=== PATIENT | female | born 1980 | race Two or more races ===

== ENCOUNTER 2024-01-10 00:20 | Inpatient (IN) | payer OTHER ==
[2024-01-10] VITALS (39 sets, daily range): BP systolic 74–151; BP diastolic 22–139; TEMP 97–99.1; O2SAT 100
[~2024-01-10] VITALS: Ht 154.9 cm; Wt 71.7 kg
[2024-01-10] MEDS ORDERED: Z GUARD REMEDY 4 OZ OINT TP PRN (01:00)
[2024-01-10] MEDS ORDERED: ZOLPIDEM TARTRATE 5 MG TABLET PO PRN (01:00)
[2024-01-10] MEDS ORDERED: ACETAMINOPHEN 325 MG TABLET PO PRN (01:00)
[2024-01-10] MEDS ORDERED: MAGNESIUM HYDROXIDE 30 ML UDC PO PRN (01:00)
[2024-01-10] MEDS ORDERED: MAG HYDROX/AL HYDROX/SIMETH 30 ML UDC PO PRN (01:00)
[2024-01-10] MEDS ORDERED: PANTOPRAZOLE 40 MG VIAL ONE ×2 (01:03→02:59)
[2024-01-10] MEDS ORDERED: OCTREOTIDE 100 MCG/ML VIAL ONE ×2 (01:03→02:00)
[2024-01-10] MEDS: PANTOPRAZOLE 80 MG in IV NS 0.9% 100 ML IV ONE (01:13)
[2024-01-10] MEDS: OCTREOTIDE 50 MCG/ML AMPUL IV ONE (01:13)
[2024-01-10 01:18] LABS: ALBUMIN 2.2 g/dL (3.4-5.0); BILIRUBIN,DIRECT 1.9 mg/dL (0.0-0.2); BILIRUBIN,TOTAL 3.1 mg/dL (0.2-1.0); CALCIUM, SERUM 8.1 mg/dL (8.5-10.1); CREATININE 1.1 mg/dL (0.6-1.3); POTASSIUM 3.6 mmol/L (3.5-5.1)
[2024-01-10 02:01] LABS: BASOPHILS # (AUTO) 0.1 K/uL (0.0-0.2); BASOPHILS % (AUTO) 0.8 % (0.0-2.0); EOSINOPHILS % (AUTO) 0.1 % (0.0-6.0); MEAN CORPUSCULAR HEMOGLOBIN 25 PG (26.0-33.0); MEAN CORPUSCULAR HGB CONC 25 g/dl (31.0-36.0); MEAN CORPUSCULAR VOLUME 100 fL (82-100); MONOCYTES # (AUTO) 0.7 K/uL (0.1-1.30); MONOCYTES % (AUTO) 6.5 % (2.0-12.0); NEUTROPHILS # (AUTO) 7.3 K/uL (1.8-8.9); NEUTROPHILS % (AUTO) 65.6 % (43.0-81.0); PLATELET COUNT (AUTO) 106 K/uL (150-450); WHITE BLOOD COUNT (AUTO) 11.1 K/uL (4.3-11.0)
[2024-01-10] MEDS ORDERED: OCTREOTIDE 500 MCG/ML VIAL ONE (02:01)
[2024-01-10 02:03] LABS: HEMATOCRIT 10 % (33-45); HEMOGLOBIN 2.5 g/dL (11.5-14.8); RED BLOOD CELL COUNT(AUTO) 0.98 MIL/uL (4.0-5.2)
[2024-01-10 02:10] LABS: INR 1.85 (0.91-1.10); PARTIAL THROMBOPLASTIN TIME 34.2 SEC (24.3-34.3)
[2024-01-10 02:11] LABS: PROTHROMBIN TIME 18.8 SECS (9.2-11.1)
[2024-01-10 02:26] LABS: ANISOCYTOSIS 1+; BASOPHILS % (MANUAL) 0 % (0.0-2.0); EOSINOPHILS % (MANUAL) 3 % (0-4); HYPOCHROMASIA 1+; LYMPHOCYTES % (MANUAL) 21 % (16-48); MONOCYTES % (MANUAL) 8 % (0-11.0); NEUTROPHILS % (MANUAL) 68 (42-76); OVALOCYTES 1+; PLATELET ESTIMATE DECREASED
[2024-01-10] MEDS: OCTREOTIDE 1,250 MCG in IV NS 0.9% 250 ML IV ONE (03:00)
[2024-01-10] MEDS: LORAZEPAM INJ 2 MG/ML VIAL IV ONE (03:00)
[2024-01-10] MEDS: IV NS 0.9% 1,000 ML IV PRN (03:00)
[2024-01-10] MEDS: PANTOPRAZOLE 80 MG in IV NS 0.9% 500 ML IV ONE (03:00)
[2024-01-10] MEDS ORDERED: ONDA4TAB5 PO (04:05)
[2024-01-10] MEDS ORDERED: METH5TAB2 PO (04:05)
[2024-01-10] MEDS ORDERED: AMPH30TA3 PO (04:05)
[2024-01-10] MEDS ORDERED: CEPH500C2 PO (04:05)
[2024-01-10] MEDS ORDERED: ZOLP10TA2 PO (04:05)
[2024-01-10] MEDS: ONDANSETRON HCL/PF 4 MG/2 ML VIAL IVP PRN (04:30)
[2024-01-10] MEDS: PANTOPRAZOLE 80 MG in IV NS 0.9% 500 ML IV PRN (04:31)
[2024-01-10] MEDS: OCTREOTIDE 1,250 MCG in IV NS 0.9% 247.5 ML IV PRN (04:33)
[2024-01-10] MEDS: LORAZEPAM INJ 2 MG/ML VIAL IV PRN (07:47)
[2024-01-10] MEDS ORDERED: HYDR-3976 PO (08:03)
[2024-01-10] MEDS: IV D5/0.45 NACL 1,000 ML IV PRN (11:11)
[2024-01-10 18:52] LABS: BASOPHILS % (AUTO) 0.3 % (0.0-2.0); EOSINOPHILS % (AUTO) 0.1 % (0.0-6.0); LYMPHOCYTES # (AUTO) 0.5 K/uL (0.8-4.8); LYMPHOCYTES % (AUTO) 6.3 % (20.0-44.0); MEAN CORPUSCULAR HEMOGLOBIN 29 PG (26.0-33.0); MEAN CORPUSCULAR HGB CONC 34 g/dl (31.0-36.0); MEAN CORPUSCULAR VOLUME 86 fL (82-100); MONOCYTES # (AUTO) 0.7 K/uL (0.1-1.30); MONOCYTES % (AUTO) 8.4 % (2.0-12.0); NEUTROPHILS # (AUTO) 6.8 K/uL (1.8-8.9); NEUTROPHILS % (AUTO) 84.9 % (43.0-81.0); RED CELL DISTRIBUTION WIDTH 15.5 % (11.5-15.0)
[2024-01-10 18:53] LABS: CALCIUM, SERUM 6.8 mg/dL (8.5-10.1); CARBON DIOXIDE 22 mmol/L (21-32); CHLORIDE 112 mmol/L (98-107); CREATININE 0.6 mg/dL (0.6-1.3); GLUCOSE 142 mg/dL (74-106); POTASSIUM 3.7 mmol/L (3.5-5.1); SODIUM SERUM 144 mmol/L (136-145); UREA NITROGEN, BLOOD 34 mg/dL (7-18)
[2024-01-10 18:56] LABS: HEMATOCRIT 18 % (33-45); HEMOGLOBIN 6.1 g/dL (11.5-14.8); PLATELET COUNT (AUTO) 34 K/uL (150-450)
[2024-01-10 19:02] LABS: PREGNANCY TEST URINE QUAL NEGATIVE (NEGATIVE)
[2024-01-10 19:03] LABS: INR 2.42 (0.91-1.10); PROTHROMBIN TIME 24.2 SECS (9.2-11.1)
[2024-01-10 19:04] LABS: AMPHETAMINE, URINE NEGATIVE (NEGATIVE); BARBITURATE, URINE NEGATIVE (NEGATIVE); BENZODIAZEPINE, URINE NEGATIVE (NEGATIVE); CANNABINOID, URINE NEGATIVE (NEGATIVE); COCCAINE, URINE NEGATIVE (NEGATIVE); OPIATE, URINE NEGATIVE (NEGATIVE); PHENCYCLIDINE SCREEN,URINE NEGATIVE (NEGATIVE)
[2024-01-10 19:05] LABS: ALANINE AMINOTRANSFERASE 326 U/L (12-78); ALBUMIN 1.5 g/dL (3.4-5.0); ALKALINE PHOSPHATASE 42 U/L (46-116); ASPARTATE AMINOTRANSFERASE > 1000 U/L (15-37); BILIRUBIN,TOTAL 4.2 mg/dL (0.2-1.0); MAGNESIUM 1.5 mg/dL (1.8-2.4); PHOSPHORUS 2.9 mg/dL (2.5-4.9)
[2024-01-10] MEDS: IV NS 0.9% 250 ML IV PRN (19:20)
[2024-01-10 19:21] LABS: LACTIC ACID 3.3 mmol/L (0.4-2.0)
[2024-01-10 19:22] LABS: ACETONE, SERUM NEGATIVE (NEGATIVE)
[2024-01-10] MEDS: SODIUM BICARBONATE SYR 50 MEQ/50 ML DISP.SYRIN IV ONE (19:30)
[2024-01-10 19:54] LABS: LYMPHOCYTES % (MANUAL) 6 % (16-48); MONOCYTES % (MANUAL) 6 % (0-11.0); NEUTROPHILS % (MANUAL) 88 (42-76)
[2024-01-10 19:55] LABS: ANISOCYTOSIS 1+; OVALOCYTES 1+; PLATELET ESTIMATE DECREASED; TEAR DROP CELLS 1+
[2024-01-10 20:36] LABS: ABG BASE EXCESS 0.9 mmol/L; ABG OXYGEN SATURATION 98.1 % (92.0-98.5); ABG PCO2 32.5 mmHg (35.0-45.0); ABG PO2 153.8 mmHg (75.0-100.0); ABG TOTAL HEMOGLOBIN 6.7 G/dL (12.0-16.0); AaDO2 65.2 mmHg; COHb 0.3 % (0.5-1.5); MetHb 0.5 % (0.0-1.5); O2Hb 97.3 % (94.0-97.0); SITE, ABG Right Radial
[2024-01-11] VITALS (83 sets, daily range): BP systolic 94–160; BP diastolic 51–93; TEMP 98.6–100.9; O2SAT 10–100
[2024-01-11 04:48] LABS: ALANINE AMINOTRANSFERASE 251 U/L (12-78); ALBUMIN 1.5 g/dL (3.4-5.0); ALKALINE PHOSPHATASE 46 U/L (46-116); ASPARTATE AMINOTRANSFERASE > 1000 U/L (15-37); BILIRUBIN,DIRECT 2.8 mg/dL (0.0-0.2); BILIRUBIN,TOTAL 4.7 mg/dL (0.2-1.0); CALCIUM, SERUM 6.7 mg/dL (8.5-10.1); CARBON DIOXIDE 25 mmol/L (21-32); CHLORIDE 113 mmol/L (98-107); CREATININE 0.6 mg/dL (0.6-1.3); GLUCOSE 140 mg/dL (74-106); MAGNESIUM 1.5 mg/dL (1.8-2.4); PHOSPHORUS 2.1 mg/dL (2.5-4.9); POTASSIUM 3.5 mmol/L (3.5-5.1); SODIUM SERUM 144 mmol/L (136-145); UREA NITROGEN, BLOOD 27 mg/dL (7-18)
[2024-01-11 05:17] LABS: BASOPHILS % (AUTO) 0.1 % (0.0-2.0); EOSINOPHILS % (AUTO) 0.3 % (0.0-6.0); LYMPHOCYTES # (AUTO) 0.6 K/uL (0.8-4.8); LYMPHOCYTES % (AUTO) 8.1 % (20.0-44.0); MEAN CORPUSCULAR HEMOGLOBIN 30 PG (26.0-33.0); MEAN CORPUSCULAR HGB CONC 35 g/dl (31.0-36.0); MEAN CORPUSCULAR VOLUME 86 fL (82-100); MONOCYTES # (AUTO) 0.6 K/uL (0.1-1.30); MONOCYTES % (AUTO) 9.5 % (2.0-12.0); NEUTROPHILS # (AUTO) 5.6 K/uL (1.8-8.9); RED BLOOD CELL COUNT(AUTO) 2.31 MIL/uL (4.0-5.2); RED CELL DISTRIBUTION WIDTH 15.4 % (11.5-15.0); WHITE BLOOD COUNT (AUTO) 6.8 K/uL (4.3-11.0)
[2024-01-11 05:28] LABS: HEMATOCRIT 20 % (33-45); HEMOGLOBIN 6.8 g/dL (11.5-14.8); PLATELET COUNT (AUTO) 29 K/uL (150-450)
[2024-01-11 06:11] LABS: ABG BASE EXCESS 0.5 mmol/L; ABG OXYGEN SATURATION 98.4 % (92.0-98.5); ABG PCO2 30.2 mmHg (35.0-45.0); ABG PH 7.509 (7.350-7.450); ABG PO2 144.6 mmHg (75.0-100.0); ABG TOTAL HEMOGLOBIN 6.7 G/dL (12.0-16.0); AaDO2 77.1 mmHg; COHb 0.8 % (0.5-1.5); MetHb 0.4 % (0.0-1.5); O2Hb 97.2 % (94.0-97.0); SITE, ABG Right Brachial; VENT MODE, BG 4L N/C
[2024-01-11 06:37] LABS: BAND % (MANUAL) 4 % (0.0-5.0); LYMPHOCYTES % (MANUAL) 7 % (16-48); MONOCYTES % (MANUAL) 9 % (0-11.0); NEUTROPHILS % (MANUAL) 80 (42-76); PLATELET ESTIMATE DECREASED
[2024-01-11 06:38] LABS: ANISOCYTOSIS 1+; HYPOCHROMASIA 1+; OVALOCYTES 1+; TEAR DROP CELLS 1+
[2024-01-11] MEDS: PROPOFOL 100 ML IV PRN (09:07)
[2024-01-11] MEDS ORDERED: LACTULOSE 10 G/15 ML UDC (PYXIS) PO PRN (09:30)
[2024-01-11] MEDS: Magnesium 1GM/D5W 100ML PREMIX 100 ML IV SCH (09:51)
[2024-01-11] MEDS: PHYTONADIONE INJ 10 MG/1 ML AMPUL SQ SCH (09:51)
[2024-01-11 10:17] LABS: ABG BASE EXCESS 0.2 mmol/L; ABG OXYGEN SATURATION 98.8 % (92.0-98.5); ABG PCO2 28.9 mmHg (35.0-45.0); ABG PH 7.518 (7.350-7.450); ABG PO2 268.6 mmHg (75.0-100.0); ABG TOTAL HEMOGLOBIN 7.1 G/dL (12.0-16.0); AaDO2 127.4 mmHg; COHb 0.5 % (0.5-1.5); MetHb 0.4 % (0.0-1.5); O2Hb 97.9 % (94.0-97.0); PEEP,BG 5 cm H2O; SITE, ABG Left Radial; VT, ABG 500 mL
[2024-01-11] MEDS ORDERED: ETOMIDATE 2 MG/ML VIAL IV ONE (11:00)
[2024-01-11] MEDS ORDERED: SUCCINYLCHOLINE CHLORIDE 20 MG/ML VIAL IV ONE (11:00)
[2024-01-11] MEDS ORDERED: ACETAMINOPHEN 325 MG TABLET PO ONE (13:30)
[2024-01-11] MEDS: diphenhydrAMINE HCL 50 MG/ML VIAL IV ONE ×2 (14:00→20:59)
[2024-01-11 14:09] LABS: D-DIMER 2.2 mg/L(FEU (0.17-0.50); INR 1.65 (0.91-1.10); PARTIAL THROMBOPLASTIN TIME 33.3 SEC (24.3-34.3); PROTHROMBIN TIME 16.9 SECS (9.2-11.1)
[2024-01-11 14:15] LABS: THYROID STIMULATING HORMONE 0.168 uIU/mL (0.358-3.74)
[2024-01-11] MEDS: Sodium Phosphate 15 MMOL in IV NS 0.9% 245 ML IV ONE (16:28)
[2024-01-11] MEDS: LACTULOSE 10 G/15 ML UDC (PYXIS) PR PRN (16:58)
[2024-01-11 19:52] LABS: BASOPHILS % (AUTO) 0.3 % (0.0-2.0); EOSINOPHILS # (AUTO) 0.1 K/uL (0.0-0.7); HEMATOCRIT 25 % (33-45); HEMOGLOBIN 8.5 g/dL (11.5-14.8); LYMPHOCYTES # (AUTO) 0.9 K/uL (0.8-4.8); LYMPHOCYTES % (AUTO) 12.4 % (20.0-44.0); MEAN CORPUSCULAR HEMOGLOBIN 30 PG (26.0-33.0); MEAN CORPUSCULAR HGB CONC 34 g/dl (31.0-36.0); MEAN CORPUSCULAR VOLUME 87 fL (82-100); MONOCYTES % (AUTO) 12.8 % (2.0-12.0); NEUTROPHILS # (AUTO) 5.5 K/uL (1.8-8.9); NEUTROPHILS % (AUTO) 73.5 % (43.0-81.0); RED BLOOD CELL COUNT(AUTO) 2.88 MIL/uL (4.0-5.2); RED CELL DISTRIBUTION WIDTH 15.7 % (11.5-15.0); WHITE BLOOD COUNT (AUTO) 7.5 K/uL (4.3-11.0)
[2024-01-11 19:53] LABS: RHEUMATOID FACTOR SCREEN NEGATIVE (NEGATIVE)
[2024-01-11 19:59] LABS: PLATELET COUNT (AUTO) 36 K/uL (150-450)
[2024-01-11] MEDS ORDERED: VANCOMYCIN HCL 1.25 GM in IV D5W 250 ML IV SCH (20:30)
[2024-01-11 20:48] LABS: CALCIUM, SERUM 7.2 mg/dL (8.5-10.1); CREATININE 0.6 mg/dL (0.6-1.3); POTASSIUM 3.4 mmol/L (3.5-5.1)
[2024-01-11] MEDS: ACETAMINOPHEN 650 MG/SUPP.RECT RC PRN (21:06)
[2024-01-11] MEDS ORDERED: LACTULOSE 10 G/15 ML UDC (PYXIS) PR PRN (21:30)
[2024-01-11] MEDS: MEROPENEM 1 G in IV NS 0.9% 100 ML IV SCH (21:40)
[2024-01-11] MEDS: METOCLOPRAMIDE HCL 10 MG/2 ML VIAL IV SCH (21:49)
[2024-01-11] MEDS: VANCOMYCIN 750 MG in IV D5W 250 ML IV SCH (22:29)
[2024-01-12] VITALS (65 sets, daily range): BP systolic 103–135; BP diastolic 45–85; TEMP 98.6–100.5; O2SAT 99–100
[2024-01-12 00:35] LABS: HEMOGLOBIN 7.1 g/dL (11.5-14.8)
[2024-01-12 07:40] LABS: BASOPHILS % (AUTO) 0.6 % (0.0-2.0); EOSINOPHILS # (AUTO) 0.1 K/uL (0.0-0.7); EOSINOPHILS % (AUTO) 1.6 % (0.0-6.0); LYMPHOCYTES # (AUTO) 0.8 K/uL (0.8-4.8); LYMPHOCYTES % (AUTO) 13.7 % (20.0-44.0); MEAN CORPUSCULAR HEMOGLOBIN 30 PG (26.0-33.0); MEAN CORPUSCULAR HGB CONC 35 g/dl (31.0-36.0); MEAN CORPUSCULAR VOLUME 86 fL (82-100); MONOCYTES # (AUTO) 0.8 K/uL (0.1-1.30); MONOCYTES % (AUTO) 14.3 % (2.0-12.0); NEUTROPHILS # (AUTO) 3.9 K/uL (1.8-8.9); NEUTROPHILS % (AUTO) 69.8 % (43.0-81.0); RED BLOOD CELL COUNT(AUTO) 2.21 MIL/uL (4.0-5.2); RED CELL DISTRIBUTION WIDTH 15.8 % (11.5-15.0); WHITE BLOOD COUNT (AUTO) 5.6 K/uL (4.3-11.0)
[2024-01-12 07:43] LABS: HEMATOCRIT 19 % (33-45); HEMOGLOBIN 6.6 g/dL (11.5-14.8); PLATELET COUNT (AUTO) 30 K/uL (150-450)
[2024-01-12 07:53] LABS: SERUM AMMONIA 109 umol/L (11-32)
[2024-01-12 08:01] LABS: IRON, SERUM 13 ug/dl (50-175); TOTAL IRON BINDING CAPACITY 174 ug/dl (250-450)
[2024-01-12 08:02] LABS: INR 1.6 (0.91-1.10); PARTIAL THROMBOPLASTIN TIME 34.8 SEC (24.3-34.3); PROTHROMBIN TIME 16.4 SECS (9.2-11.1)
[2024-01-12 08:03] LABS: D-DIMER 4.43 mg/L(FEU (0.17-0.50)
[2024-01-12 08:05] LABS: ALBUMIN 1.8 g/dL (3.4-5.0); BILIRUBIN,DIRECT 3.8 mg/dL (0.0-0.2); BILIRUBIN,TOTAL 5.8 mg/dL (0.2-1.0); CALCIUM, SERUM 6.8 mg/dL (8.5-10.1); CREATININE 0.6 mg/dL (0.6-1.3); MAGNESIUM 1.8 mg/dL (1.8-2.4); PHOSPHORUS 2.6 mg/dL (2.5-4.9); TOTAL PROTEIN, SERUM 4.7 g/dL (6.4-8.2)
[2024-01-12 08:12] LABS: ABG BASE EXCESS -2.8 mmol/L; ABG OXYGEN SATURATION 98.2 % (92.0-98.5); ABG PCO2 24.5 mmHg (35.0-45.0); ABG TOTAL HEMOGLOBIN 7.1 G/dL (12.0-16.0); AaDO2 45.7 mmHg; COHb 0.5 % (0.5-1.5); MetHb 0.3 % (0.0-1.5); O2Hb 97.4 % (94.0-97.0); SITE, ABG Right Radial; VENT MODE, BG AC 12 450 28% +5
[2024-01-12 08:20] LABS: POTASSIUM 2.5 mmol/L (3.5-5.1)
[2024-01-12 09:01] LABS: FERRITIN 41 ng/mL (8-388)
[2024-01-12] MEDS: POTASSIUM CL. PREMIX PERIPHER. 50 ML IV SCH (10:48)
[2024-01-12 11:37] LABS: HEMOGLOBIN 6.6 g/dL (11.5-14.8)
[2024-01-12 12:23] LABS: ANISOCYTOSIS 1+; BASOPHILS % (MANUAL) 0 % (0.0-2.0); EOSINOPHILS % (MANUAL) 4 % (0-4); HYPOCHROMASIA 2+; LYMPHOCYTES % (MANUAL) 11 % (16-48); MONOCYTES % (MANUAL) 10 % (0-11.0); NEUTROPHILS % (MANUAL) 75 (42-76); OVALOCYTES 1+; PLATELET ESTIMATE DECREASED
[2024-01-12] MEDS ORDERED: ANESTHESIA TRAY IN PYXIS 1 EA TRAY MC ONE (15:56)
[2024-01-13] VITALS (66 sets, daily range): BP systolic 94–133; BP diastolic 56–95; TEMP 97.6–100; O2SAT 97–100
[2024-01-13 02:40] LABS: HEMOGLOBIN 10.2 g/dL (11.5-14.8)
[2024-01-13 04:19] LABS: BASOPHILS % (AUTO) 0.2 % (0.0-2.0); EOSINOPHILS # (AUTO) 0.1 K/uL (0.0-0.7); EOSINOPHILS % (AUTO) 1.5 % (0.0-6.0); HEMATOCRIT 31 % (33-45); HEMOGLOBIN 10.7 g/dL (11.5-14.8); LYMPHOCYTES # (AUTO) 0.8 K/uL (0.8-4.8); LYMPHOCYTES % (AUTO) 9.9 % (20.0-44.0); MEAN CORPUSCULAR HEMOGLOBIN 31 PG (26.0-33.0); MEAN CORPUSCULAR HGB CONC 35 g/dl (31.0-36.0); MEAN CORPUSCULAR VOLUME 87 fL (82-100); MONOCYTES # (AUTO) 1.2 K/uL (0.1-1.30); MONOCYTES % (AUTO) 15.4 % (2.0-12.0); NEUTROPHILS # (AUTO) 5.9 K/uL (1.8-8.9); RED BLOOD CELL COUNT(AUTO) 3.51 MIL/uL (4.0-5.2); RED CELL DISTRIBUTION WIDTH 15.7 % (11.5-15.0); WHITE BLOOD COUNT (AUTO) 8.1 K/uL (4.3-11.0)
[2024-01-13 04:25] LABS: PLATELET COUNT (AUTO) 34 K/uL (150-450)
[2024-01-13 04:41] LABS: ALBUMIN 1.9 g/dL (3.4-5.0); BILIRUBIN,TOTAL 7.1 mg/dL (0.2-1.0); CALCIUM, SERUM 6.8 mg/dL (8.5-10.1); CREATININE 0.6 mg/dL (0.6-1.3); POTASSIUM 3.2 mmol/L (3.5-5.1); TOTAL PROTEIN, SERUM 5.1 g/dL (6.4-8.2)
[2024-01-13 04:44] LABS: INR 1.6 (0.91-1.10); PARTIAL THROMBOPLASTIN TIME 34.3 SEC (24.3-34.3); PROTHROMBIN TIME 16.4 SECS (9.2-11.1)
[2024-01-13 04:48] LABS: D-DIMER 8.74 mg/L(FEU (0.17-0.50)
[2024-01-13 05:04] LABS: ANISOCYTOSIS 1+; BASOPHILS % (MANUAL) 0 % (0.0-2.0); EOSINOPHILS % (MANUAL) 4 % (0-4); LYMPHOCYTES % (MANUAL) 8 % (16-48); MONOCYTES % (MANUAL) 12 % (0-11.0); NEUTROPHILS % (MANUAL) 76 (42-76); OVALOCYTES 1+; PLATELET ESTIMATE DECREASED
[2024-01-13 08:10] LABS: *ANA ANTI-CENTROMERE B AB <0.2 AI (0.0-0.9); *ANA ANTI-DNA(DS) AB, QN 2 IU/mL (0-9); *ANA ANTI-JO-1 <0.2 AI (0.0-0.9); *ANA ANTICHROMATIN ANTIBODY <0.2 AI (0.0-0.9); *ANA RNP ANTIBODIES <0.2 AI (0.0-0.9); *ANA SJOGREN'S ANTI-SS-A <0.2 AI (0.0-0.9); *ANA SJOGREN'S ANTI-SS-B <0.2 AI (0.0-0.9); *ANAANTI-SCLERODERMA-70 AB <0.2 AI (0.0-0.9); *ANASMITH AB <0.2 AI (0.0-0.9); *SPE A/G RATIO 0.7 (0.7-1.7); *SPE ALBUMIN 2.1 g/dL (2.9-4.4); *SPE ALPHA-1-GLOBULIN 0.3 g/dL (0.0-0.4); *SPE ALPHA-2-GLOBULIN 0.4 g/dL (0.4-1.0); *SPE BETA GLOBULIN 0.8 g/dL (0.7-1.3); *SPE M-SPIKE Not Observed g/dL (Not Observed); *SPE PROTEIN TOTAL 5.1 g/dL (6.0-8.5); *SPEGAMMA GLOBULIN 1.6 g/dL (0.4-1.8); FREE KAPPA LT CHAINS SERUM 68.1 mg/L (3.3-19.4); FREE LAMBDA LT CHAIN SERUM 85.2 mg/L (5.7-26.3); HEPATITIS B SURFACE AB Reactive (.); IMMUNOGLOBULIN A, SERUM 360 mg/dL (87-352); IMMUNOGLOBULIN G, SERUM 1555 mg/dL (586-1602); IMMUNOGLOBULIN M, SERUM 130 mg/dL (26-217)
[2024-01-13] MEDS: POTASSIUM CL. PREMIX PERIPHER. 50 ML IV SCH (09:20)
[2024-01-13] MEDS: ACETAMINOPHEN 325 MG TABLET PO ONE (13:00)
[2024-01-13] MEDS: VANCOMYCIN 1 GM in IV D5W 250ml IV SCH (14:54)
[2024-01-13] MEDS: diphenhydrAMINE HCL 50 MG/ML VIAL IV ONE (14:59)
[2024-01-13 15:10] LABS: FOLIC ACID 6.9 ng/mL (>3.0)
[2024-01-13] MEDS: MEROPENEM 1 G in IV NS 0.9% 100 ML IV SCH (21:26)
[2024-01-13] MEDS: LACTULOSE 10 G/15 ML UDC (PYXIS) PR SCH (21:32)
[2024-01-13 21:56] LABS: BASOPHILS % (AUTO) 0.9 % (0.0-2.0); EOSINOPHILS # (AUTO) 0.2 K/uL (0.0-0.7); EOSINOPHILS % (AUTO) 2.9 % (0.0-6.0); HEMATOCRIT 28 % (33-45); HEMOGLOBIN 9.6 g/dL (11.5-14.8); LYMPHOCYTES # (AUTO) 0.5 K/uL (0.8-4.8); LYMPHOCYTES % (AUTO) 10.2 % (20.0-44.0); MEAN CORPUSCULAR HEMOGLOBIN 30 PG (26.0-33.0); MEAN CORPUSCULAR HGB CONC 34 g/dl (31.0-36.0); MEAN CORPUSCULAR VOLUME 88 fL (82-100); MONOCYTES # (AUTO) 0.8 K/uL (0.1-1.30); MONOCYTES % (AUTO) 14.9 % (2.0-12.0); NEUTROPHILS # (AUTO) 3.8 K/uL (1.8-8.9); NEUTROPHILS % (AUTO) 71.1 % (43.0-81.0); RED BLOOD CELL COUNT(AUTO) 3.22 MIL/uL (4.0-5.2); RED CELL DISTRIBUTION WIDTH 16.2 % (11.5-15.0); WHITE BLOOD COUNT (AUTO) 5.3 K/uL (4.3-11.0)
[2024-01-13 22:15] LABS: PLATELET COUNT (AUTO) 46 K/uL (150-450)
[2024-01-13 23:00] LABS: ANISOCYTOSIS 1+; BAND % (MANUAL) 3 % (0.0-5.0); BASOPHILS % (MANUAL) 0 % (0.0-2.0); EOSINOPHILS % (MANUAL) 4 % (0-4); LYMPHOCYTES % (MANUAL) 8 % (16-48); MONOCYTES % (MANUAL) 12 % (0-11.0); NEUTROPHILS % (MANUAL) 73 (42-76); OVALOCYTES 1+; PLATELET ESTIMATE DECREASED
[2024-01-14] VITALS (40 sets, daily range): BP systolic 101–132; BP diastolic 62–96; TEMP 97.7–98.6; O2SAT 96–100
[2024-01-14] MEDS: PANTOPRAZOLE 40 MG VIAL ONE (03:54)
[2024-01-14 05:18] LABS: BASOPHILS # (AUTO) 0.1 K/uL (0.0-0.2); BASOPHILS % (AUTO) 0.9 % (0.0-2.0); EOSINOPHILS # (AUTO) 0.2 K/uL (0.0-0.7); EOSINOPHILS % (AUTO) 3.9 % (0.0-6.0); HEMATOCRIT 29 % (33-45); HEMOGLOBIN 9.9 g/dL (11.5-14.8); LYMPHOCYTES # (AUTO) 0.6 K/uL (0.8-4.8); LYMPHOCYTES % (AUTO) 10.2 % (20.0-44.0); MEAN CORPUSCULAR HEMOGLOBIN 30 PG (26.0-33.0); MEAN CORPUSCULAR HGB CONC 34 g/dl (31.0-36.0); MEAN CORPUSCULAR VOLUME 90 fL (82-100); MONOCYTES # (AUTO) 1.1 K/uL (0.1-1.30); MONOCYTES % (AUTO) 19.1 % (2.0-12.0); NEUTROPHILS # (AUTO) 3.6 K/uL (1.8-8.9); NEUTROPHILS % (AUTO) 65.9 % (43.0-81.0); RED BLOOD CELL COUNT(AUTO) 3.27 MIL/uL (4.0-5.2); RED CELL DISTRIBUTION WIDTH 16.3 % (11.5-15.0); WHITE BLOOD COUNT (AUTO) 5.5 K/uL (4.3-11.0)
[2024-01-14 05:32] LABS: PLATELET COUNT (AUTO) 43 K/uL (150-450)
[2024-01-14 05:39] LABS: BILIRUBIN,TOTAL 5.5 mg/dL (0.2-1.0); CALCIUM, SERUM 6.7 mg/dL (8.5-10.1); CREATININE 0.6 mg/dL (0.6-1.3); POTASSIUM 2.9 mmol/L (3.5-5.1); TOTAL PROTEIN, SERUM 5.4 g/dL (6.4-8.2)
[2024-01-14 05:49] LABS: INR 1.42 (0.91-1.10); PROTHROMBIN TIME 14.7 SECS (9.2-11.1)
[2024-01-14 05:50] LABS: D-DIMER 9.1 mg/L(FEU (0.17-0.50)
[2024-01-14 06:28] LABS: ANISOCYTOSIS 1+; BAND % (MANUAL) 3 % (0.0-5.0); BASOPHILS % (MANUAL) 0 % (0.0-2.0); EOSINOPHILS % (MANUAL) 5 % (0-4); HYPOCHROMASIA 1+; LYMPHOCYTES % (MANUAL) 8 % (16-48); MONOCYTES % (MANUAL) 15 % (0-11.0); NEUTROPHILS % (MANUAL) 69 (42-76); PLATELET ESTIMATE DECREASED
[2024-01-14 06:29] LABS: OVALOCYTES 1+
[2024-01-14] MEDS: POTASSIUM CL. PREMIX PERIPHER. 50 ML IV SCH (09:14)
[2024-01-14 11:34] LABS: HEMOGLOBIN 10.1 g/dL (11.5-14.8)
[2024-01-14] MEDS: ALBUTEROL FS 2.5 MG/0.5 ML VIAL.NEB NEB SCH (14:15)
[2024-01-14] MEDS: VANCOMYCIN 750 MG in IV D5W 250 ML IV SCH (16:00)
[2024-01-14] MEDS: PRECEDEX 400 MCG/100 ML BOTTLE 100 ML IV PRN (17:28)
[2024-01-15] VITALS (46 sets, daily range): BP systolic 101–138; BP diastolic 68–93; TEMP 97.5–98.5; O2SAT 93–100
[2024-01-15 05:18] LABS: BASOPHILS # (AUTO) 0.1 K/uL (0.0-0.2); BASOPHILS % (AUTO) 1.9 % (0.0-2.0); EOSINOPHILS # (AUTO) 0.1 K/uL (0.0-0.7); EOSINOPHILS % (AUTO) 2.2 % (0.0-6.0); HEMATOCRIT 30 % (33-45); HEMOGLOBIN 10.2 g/dL (11.5-14.8); LYMPHOCYTES # (AUTO) 0.5 K/uL (0.8-4.8); LYMPHOCYTES % (AUTO) 12.3 % (20.0-44.0); MEAN CORPUSCULAR HEMOGLOBIN 30 PG (26.0-33.0); MEAN CORPUSCULAR HGB CONC 34 g/dl (31.0-36.0); MEAN CORPUSCULAR VOLUME 89 fL (82-100); MONOCYTES # (AUTO) 0.7 K/uL (0.1-1.30); MONOCYTES % (AUTO) 16.3 % (2.0-12.0); NEUTROPHILS # (AUTO) 2.8 K/uL (1.8-8.9); NEUTROPHILS % (AUTO) 67.3 % (43.0-81.0); RED CELL DISTRIBUTION WIDTH 16.6 % (11.5-15.0); WHITE BLOOD COUNT (AUTO) 4.1 K/uL (4.3-11.0)
[2024-01-15 05:30] LABS: ALBUMIN 1.8 g/dL (3.4-5.0); BILIRUBIN,TOTAL 4.9 mg/dL (0.2-1.0); CALCIUM, SERUM 6.6 mg/dL (8.5-10.1); CREATININE 0.5 mg/dL (0.6-1.3); POTASSIUM 3.2 mmol/L (3.5-5.1); TOTAL PROTEIN, SERUM 5.4 g/dL (6.4-8.2)
[2024-01-15 05:39] LABS: PLATELET COUNT (AUTO) 45 K/uL (150-450)
[2024-01-15 05:45] LABS: INR 1.57 (0.91-1.10); PROTHROMBIN TIME 16.2 SECS (9.2-11.1)
[2024-01-15 05:46] LABS: D-DIMER 13.67 mg/L(FEU (0.17-0.50)
[2024-01-15] MEDS: OCTREOTIDE 1,250 MCG in IV NS 0.9% 247.5 ML IV PRN (11:03)
[2024-01-15 11:44] LABS: ANISOCYTOSIS 1+; BAND % (MANUAL) 5 % (0.0-5.0); BASOPHILS % (MANUAL) 0 % (0.0-2.0); EOSINOPHILS % (MANUAL) 4 % (0-4); LYMPHOCYTES % (MANUAL) 12 % (16-48); MONOCYTES % (MANUAL) 14 % (0-11.0); NEUTROPHILS % (MANUAL) 65 (42-76); OVALOCYTES 1+; PLATELET ESTIMATE DECREASED
[2024-01-15] MEDS: POTASSIUM CL. PREMIX PERIPHER. 50 ML IV SCH (11:49)
[2024-01-15] MEDS: Thiamine 100 MG in IV D5W 50 ML IV SCH (13:23)
[2024-01-15] MEDS: Folic acid 1 MG in IV D5W 50 ML IV SCH (13:25)
[2024-01-15] MEDS: PANTOPRAZOLE 40 MG VIAL IV SCH (20:12)
[2024-01-16] VITALS (43 sets, daily range): BP systolic 103–139; BP diastolic 60–97; TEMP 98.2–98.6; O2SAT 93–100
[2024-01-16 04:14] LABS: BASOPHILS # (AUTO) 0.1 K/uL (0.0-0.2); BASOPHILS % (AUTO) 1.2 % (0.0-2.0); EOSINOPHILS # (AUTO) 0.2 K/uL (0.0-0.7); EOSINOPHILS % (AUTO) 2.6 % (0.0-6.0); HEMATOCRIT 32 % (33-45); HEMOGLOBIN 10.6 g/dL (11.5-14.8); LYMPHOCYTES # (AUTO) 1.1 K/uL (0.8-4.8); LYMPHOCYTES % (AUTO) 16.9 % (20.0-44.0); MEAN CORPUSCULAR HEMOGLOBIN 30 PG (26.0-33.0); MEAN CORPUSCULAR HGB CONC 33 g/dl (31.0-36.0); MEAN CORPUSCULAR VOLUME 89 fL (82-100); MONOCYTES # (AUTO) 0.7 K/uL (0.1-1.30); MONOCYTES % (AUTO) 10.6 % (2.0-12.0); NEUTROPHILS # (AUTO) 4.5 K/uL (1.8-8.9); NEUTROPHILS % (AUTO) 68.7 % (43.0-81.0); PLATELET COUNT (AUTO) 74 K/uL (150-450); RED BLOOD CELL COUNT(AUTO) 3.59 MIL/uL (4.0-5.2); RED CELL DISTRIBUTION WIDTH 17.4 % (11.5-15.0); WHITE BLOOD COUNT (AUTO) 6.5 K/uL (4.3-11.0)
[2024-01-16 04:30] LABS: ALBUMIN 1.7 g/dL (3.4-5.0); BILIRUBIN,TOTAL 6.1 mg/dL (0.2-1.0); CALCIUM, SERUM 6.7 mg/dL (8.5-10.1); CREATININE 0.5 mg/dL (0.6-1.3); POTASSIUM 3.1 mmol/L (3.5-5.1); TOTAL PROTEIN, SERUM 5.2 g/dL (6.4-8.2)
[2024-01-16 04:56] LABS: INR 1.61 (0.91-1.10); PARTIAL THROMBOPLASTIN TIME 35.6 SEC (24.3-34.3); PROTHROMBIN TIME 16.5 SECS (9.2-11.1)
[2024-01-16 05:09] LABS: D-DIMER 18.26 mg/L(FEU (0.17-0.50)
[2024-01-16] MEDS: POTASSIUM CL. PREMIX PERIPHER. 50 ML IV SCH (07:29)
[2024-01-16 11:34] LABS: ANISOCYTOSIS 1+; BAND % (MANUAL) 3 % (0.0-5.0); BASOPHILS % (MANUAL) 0 % (0.0-2.0); EOSINOPHILS % (MANUAL) 4 % (0-4); LYMPHOCYTES % (MANUAL) 12 % (16-48); MONOCYTES % (MANUAL) 9 % (0-11.0); NEUTROPHILS % (MANUAL) 72 (42-76); OVALOCYTES 1+; PLATELET ESTIMATE DECREASED; TEAR DROP CELLS 1+
[2024-01-17] VITALS (10 sets, daily range): BP systolic 119–136; BP diastolic 76–85; TEMP 98.2–99.9; O2SAT 87–99
[2024-01-17 07:15] LABS: BASOPHILS # (AUTO) 0.1 K/uL (0.0-0.2); BASOPHILS % (AUTO) 0.9 % (0.0-2.0); EOSINOPHILS # (AUTO) 0.1 K/uL (0.0-0.7); EOSINOPHILS % (AUTO) 1.5 % (0.0-6.0); HEMATOCRIT 34 % (33-45); HEMOGLOBIN 11.2 g/dL (11.5-14.8); LYMPHOCYTES # (AUTO) 0.8 K/uL (0.8-4.8); LYMPHOCYTES % (AUTO) 8.4 % (20.0-44.0); MEAN CORPUSCULAR HEMOGLOBIN 30 PG (26.0-33.0); MEAN CORPUSCULAR HGB CONC 33 g/dl (31.0-36.0); MEAN CORPUSCULAR VOLUME 90 fL (82-100); MONOCYTES # (AUTO) 1.6 K/uL (0.1-1.30); NEUTROPHILS # (AUTO) 7.2 K/uL (1.8-8.9); NEUTROPHILS % (AUTO) 73.2 % (43.0-81.0); PLATELET COUNT (AUTO) 87 K/uL (150-450); RED BLOOD CELL COUNT(AUTO) 3.76 MIL/uL (4.0-5.2); RED CELL DISTRIBUTION WIDTH 17.7 % (11.5-15.0); WHITE BLOOD COUNT (AUTO) 9.8 K/uL (4.3-11.0)
[2024-01-17] MEDS: FOLIC ACID 1 MG TABLET PO SCH (09:00)
[2024-01-17] MEDS: THIAMINE HCL 100 MG TABLET PO SCH (09:00)
[2024-01-17 09:19] LABS: ALBUMIN 1.6 g/dL (3.4-5.0); BILIRUBIN,TOTAL 8.3 mg/dL (0.2-1.0); CREATININE 0.4 mg/dL (0.6-1.3); POTASSIUM 3.4 mmol/L (3.5-5.1); TOTAL PROTEIN, SERUM 5.6 g/dL (6.4-8.2)
[2024-01-17 10:15] LABS: BASOPHILS % (MANUAL) 0 % (0.0-2.0); EOSINOPHILS % (MANUAL) 3 % (0-4); LYMPHOCYTES % (MANUAL) 9 % (16-48); MONOCYTES % (MANUAL) 13 % (0-11.0); NEUTROPHILS % (MANUAL) 75 (42-76); PLATELET ESTIMATE GIANT PLATELET SEEN
[2024-01-17 10:16] LABS: ANISOCYTOSIS 1+; HYPOCHROMASIA 1+; OVALOCYTES 1+
[2024-01-17 15:32] LABS: INR 1.81 (0.91-1.10); PROTHROMBIN TIME 18.5 SECS (9.2-11.1)
[2024-01-18] VITALS (17 sets, daily range): BP systolic 105–137; BP diastolic 68–81; TEMP 99–99.5; O2SAT 95–100
[2024-01-18 07:44] LABS: BASOPHILS # (AUTO) 0.1 K/uL (0.0-0.2); BASOPHILS % (AUTO) 0.8 % (0.0-2.0); EOSINOPHILS # (AUTO) 0.2 K/uL (0.0-0.7); EOSINOPHILS % (AUTO) 1.3 % (0.0-6.0); HEMATOCRIT 32 % (33-45); HEMOGLOBIN 10.5 g/dL (11.5-14.8); LYMPHOCYTES % (AUTO) 8.7 % (20.0-44.0); MEAN CORPUSCULAR HEMOGLOBIN 30 PG (26.0-33.0); MEAN CORPUSCULAR HGB CONC 33 g/dl (31.0-36.0); MEAN CORPUSCULAR VOLUME 90 fL (82-100); MONOCYTES # (AUTO) 1.8 K/uL (0.1-1.30); NEUTROPHILS # (AUTO) 8.8 K/uL (1.8-8.9); NEUTROPHILS % (AUTO) 74.2 % (43.0-81.0); PLATELET COUNT (AUTO) 121 K/uL (150-450); RED BLOOD CELL COUNT(AUTO) 3.54 MIL/uL (4.0-5.2); RED CELL DISTRIBUTION WIDTH 18.2 % (11.5-15.0); WHITE BLOOD COUNT (AUTO) 11.8 K/uL (4.3-11.0)
[2024-01-18 08:00] LABS: INR 1.99 (0.91-1.10); PARTIAL THROMBOPLASTIN TIME 40.3 SEC (24.3-34.3); PROTHROMBIN TIME 20.2 SECS (9.2-11.1)
[2024-01-18 08:03] LABS: ALBUMIN 1.7 g/dL (3.4-5.0); BILIRUBIN,TOTAL 8.7 mg/dL (0.2-1.0); CALCIUM, SERUM 7.1 mg/dL (8.5-10.1); CREATININE 0.4 mg/dL (0.6-1.3); TOTAL PROTEIN, SERUM 5.7 g/dL (6.4-8.2)
[2024-01-18 08:10] LABS: MAGNESIUM 1.2 mg/dL (1.8-2.4); POTASSIUM 2.7 mmol/L (3.5-5.1)
[2024-01-18] MEDS: POTASSIUM CL. PREMIX PERIPHER. 50 ML IV SCH (09:31)
[2024-01-18] MEDS: POTASSIUM CHLORIDE 20 MEQ TAB.PRT.SR PO ONE (09:31)
[2024-01-18] MEDS: Magnesium 1GM/D5W 100ML PREMIX 100 ML IV SCH (12:22)
[2024-01-18] MEDS: PANTOPRAZOLE 40 MG TABLET.DR PO SCH (21:50)
[2024-01-18] MEDS: CEFEPIME HCL 2 GM in IV D5W 100 ML IV SCH (21:50)
[2024-01-19] VITALS (8 sets, daily range): BP systolic 126–139; BP diastolic 65–86; TEMP 98.4–98.8; O2SAT 96–100
[2024-01-19] MEDS: LORAZEPAM 0.5 MG TABLET PO PRN (04:05)
[2024-01-19 10:26] LABS: MAGNESIUM 1.7 mg/dL (1.8-2.4); PHOSPHORUS 1.8 mg/dL (2.5-4.9)
[2024-01-19 10:33] LABS: INR 1.94 (0.91-1.10); PARTIAL THROMBOPLASTIN TIME 40.5 SEC (24.3-34.3); PROTHROMBIN TIME 19.7 SECS (9.2-11.1)
[2024-01-19 10:34] LABS: D-DIMER 23.41 mg/L(FEU (0.17-0.50)
[2024-01-19 10:35] LABS: CALCIUM, SERUM 7.5 mg/dL (8.5-10.1); CREATININE 0.5 mg/dL (0.6-1.3); POTASSIUM 3.2 mmol/L (3.5-5.1)
[2024-01-19 11:25] LABS: BASOPHILS % (AUTO) 0.3 % (0.0-2.0); EOSINOPHILS # (AUTO) 0.2 K/uL (0.0-0.7); EOSINOPHILS % (AUTO) 1.3 % (0.0-6.0); HEMATOCRIT 30 % (33-45); LYMPHOCYTES # (AUTO) 0.4 K/uL (0.8-4.8); MEAN CORPUSCULAR HEMOGLOBIN 31 PG (26.0-33.0); MEAN CORPUSCULAR HGB CONC 34 g/dl (31.0-36.0); MEAN CORPUSCULAR VOLUME 92 fL (82-100); MONOCYTES # (AUTO) 1.8 K/uL (0.1-1.30); MONOCYTES % (AUTO) 13.5 % (2.0-12.0); NEUTROPHILS # (AUTO) 10.9 K/uL (1.8-8.9); NEUTROPHILS % (AUTO) 81.9 % (43.0-81.0); PLATELET COUNT (AUTO) 150 K/uL (150-450); RED BLOOD CELL COUNT(AUTO) 3.24 MIL/uL (4.0-5.2); RED CELL DISTRIBUTION WIDTH 18.2 % (11.5-15.0); WHITE BLOOD COUNT (AUTO) 13.3 K/uL (4.3-11.0)
[2024-01-19] MEDS: K PHOS NEUTRAL 250 MG TABLET PO ONE (11:57)
[2024-01-19] MEDS: MAGNESIUM OXIDE 400 MG TABLET PO ONE (11:57)
[2024-01-19] MEDS: POTASSIUM CHLORIDE 20 MEQ TAB.PRT.SR PO ONE (11:57)
[2024-01-20 04:00] VITALS: BP 138/75; TEMP 98.4; O2SAT 98
[2024-01-20 06:40] LABS: BASOPHILS # (AUTO) 0.1 K/uL (0.0-0.2); BASOPHILS % (AUTO) 0.6 % (0.0-2.0); EOSINOPHILS # (AUTO) 0.1 K/uL (0.0-0.7); EOSINOPHILS % (AUTO) 0.6 % (0.0-6.0); HEMATOCRIT 31 % (33-45); HEMOGLOBIN 10.4 g/dL (11.5-14.8); LYMPHOCYTES # (AUTO) 0.6 K/uL (0.8-4.8); MEAN CORPUSCULAR HEMOGLOBIN 30 PG (26.0-33.0); MEAN CORPUSCULAR HGB CONC 33 g/dl (31.0-36.0); MEAN CORPUSCULAR VOLUME 91 fL (82-100); MONOCYTES # (AUTO) 2.2 K/uL (0.1-1.30); MONOCYTES % (AUTO) 13.7 % (2.0-12.0); NEUTROPHILS # (AUTO) 12.8 K/uL (1.8-8.9); NEUTROPHILS % (AUTO) 81.1 % (43.0-81.0); PLATELET COUNT (AUTO) 183 K/uL (150-450); RED BLOOD CELL COUNT(AUTO) 3.42 MIL/uL (4.0-5.2); RED CELL DISTRIBUTION WIDTH 18.6 % (11.5-15.0); WHITE BLOOD COUNT (AUTO) 15.8 K/uL (4.3-11.0)
[2024-01-20 07:10] LABS: ALBUMIN 1.9 g/dL (3.4-5.0); BILIRUBIN,TOTAL 11.8 mg/dL (0.2-1.0); CALCIUM, SERUM 8.1 mg/dL (8.5-10.1); CREATININE 0.5 mg/dL (0.6-1.3); MAGNESIUM 1.6 mg/dL (1.8-2.4); POTASSIUM 3.7 mmol/L (3.5-5.1); TOTAL PROTEIN, SERUM 6.3 g/dL (6.4-8.2)
[2024-01-20 07:16] LABS: INR 2.16 (0.91-1.10); PARTIAL THROMBOPLASTIN TIME 41.6 SEC (24.3-34.3); PROTHROMBIN TIME 21.8 SECS (9.2-11.1)
[2024-01-20 07:17] LABS: D-DIMER 23.94 mg/L(FEU (0.17-0.50)
[2024-01-20 08:00] VITALS: BP 121/66; TEMP 99.3; O2SAT 99
[2024-01-20] MEDS: MAGNESIUM OXIDE 400 MG TABLET PO ONE (09:49)
[2024-01-20 16:00] VITALS: BP 134/80; TEMP 98.7; O2SAT 96
[2024-01-20] MEDS: K PHOS NEUTRAL 250 MG TABLET PO ONE (16:32)
[2024-01-20 20:00] VITALS: BP 140/83; TEMP 98.8; O2SAT 98
[2024-01-20] MEDS: TEMAZEPAM 7.5 MG CAPSULE PO SCH (21:17)
[2024-01-21 04:00] VITALS: BP 130/65; TEMP 98.4; O2SAT 97
[2024-01-21 08:00] VITALS: BP 129/75; TEMP 98.1; O2SAT 97
[2024-01-21 08:17] LABS: BASOPHILS % (AUTO) 0.3 % (0.0-2.0); EOSINOPHILS # (AUTO) 0.1 K/uL (0.0-0.7); EOSINOPHILS % (AUTO) 0.6 % (0.0-6.0); HEMATOCRIT 28 % (33-45); HEMOGLOBIN 9.4 g/dL (11.5-14.8); LYMPHOCYTES # (AUTO) 0.7 K/uL (0.8-4.8); MEAN CORPUSCULAR HEMOGLOBIN 30 PG (26.0-33.0); MEAN CORPUSCULAR HGB CONC 33 g/dl (31.0-36.0); MEAN CORPUSCULAR VOLUME 90 fL (82-100); MONOCYTES # (AUTO) 2.2 K/uL (0.1-1.30); MONOCYTES % (AUTO) 15.4 % (2.0-12.0); NEUTROPHILS # (AUTO) 11.1 K/uL (1.8-8.9); NEUTROPHILS % (AUTO) 78.7 % (43.0-81.0); PLATELET COUNT (AUTO) 164 K/uL (150-450); RED BLOOD CELL COUNT(AUTO) 3.17 MIL/uL (4.0-5.2); RED CELL DISTRIBUTION WIDTH 18.4 % (11.5-15.0); WHITE BLOOD COUNT (AUTO) 14.1 K/uL (4.3-11.0)
[2024-01-21 10:26] LABS: CALCIUM, SERUM 8.1 mg/dL (8.5-10.1); CREATININE 0.5 mg/dL (0.6-1.3); POTASSIUM 3.8 mmol/L (3.5-5.1)
[2024-01-21 14:20] VITALS: O2SAT 98
[2024-01-21 14:35] VITALS: O2SAT 100
[2024-01-21 16:00] VITALS: BP 117/75; TEMP 98.1; O2SAT 100
[2024-01-21 20:00] VITALS: BP 109/69; TEMP 98.4; O2SAT 94
== END 2024-01-21 23:48 | disposition left against medical advice (07) | DRG 241 ==
LOC: EDBD 00:22 → ER 00:22 → ICU 02:21 → MEDSG1 01-16 19:13
PROVIDERS: ADMIT Student in an Organized Health Care Education/Training Program; ATTEND Nurse Practitioner Family
PROC: 0DJ08ZZ Inspection of Upper Intestinal Tract, Via Natural or Artificial Opening Endoscopic (ICD-10-PCS; principal; 2024-01-10)
PROC: 30233N1 Transfusion of Nonautologous Red Blood Cells into Peripheral Vein, Percutaneous Approach (ICD-10-PCS; 2024-01-10)
PROC: 06HM33Z Insertion of Infusion Device into Right Femoral Vein, Percutaneous Approach (ICD-10-PCS; 2024-01-10)
PROC: B54BZZA Ultrasonography of Right Lower Extremity Veins, Guidance (ICD-10-PCS; 2024-01-10)
PROC: 5A1945Z Respiratory Ventilation, 24-96 Consecutive Hours (ICD-10-PCS; 2024-01-11)
PROC: 0BH17EZ Insertion of Endotracheal Airway into Trachea, Via Natural or Artificial Opening (ICD-10-PCS; 2024-01-11)
PROC: 30233K1 Transfusion of Nonautologous Frozen Plasma into Peripheral Vein, Percutaneous Approach (ICD-10-PCS; 2024-01-11)
PROC: 30233R1 Transfusion of Nonautologous Platelets into Peripheral Vein, Percutaneous Approach (ICD-10-PCS; 2024-01-11)
PROC: 30233M1 Transfusion of Nonautologous Plasma Cryoprecipitate into Peripheral Vein, Percutaneous Approach (ICD-10-PCS; 2024-01-11)
PROC: 0W3P8ZZ Control Bleeding in Gastrointestinal Tract, Via Natural or Artificial Opening Endoscopic (ICD-10-PCS; 2024-01-12)
DX: K25.4 Chronic or unspecified gastric ulcer with hemorrhage (principal); J96.00 Acute respiratory failure, unspecified whether with hypoxia or hypercapnia; D65 Disseminated intravascular coagulation [defibrination syndrome]; D61.818 Other pancytopenia; E44.0 Moderate protein-calorie malnutrition; E72.20 Disorder of urea cycle metabolism, unspecified; D68.9 Coagulation defect, unspecified; I95.9 Hypotension, unspecified; E87.20 Acidosis, unspecified; K76.82 Hepatic encephalopathy; D62 Acute posthemorrhagic anemia; E86.1 Hypovolemia; K70.30 Alcoholic cirrhosis of liver without ascites; F10.139 Alcohol abuse with withdrawal, unspecified; Y90.9 Presence of alcohol in blood, level not specified; E87.6 Hypokalemia; E88.09 Other disorders of plasma-protein metabolism, not elsewhere classified; K31.9 Disease of stomach and duodenum, unspecified; Z68.29 Body mass index [BMI] 29.0-29.9, adult
CPT/HCPCS: 31720; 36415; 36600; 70450-TC; 71045-TC; 80048-TC; 80053-TC; 80076-TC; 80202-TC; 82010-TC; 82088; 82140-TC; 82550-TC; 82553; 82607-TC; 82728-TC; 82784; 82803-TC; 83540-TC; 83605-TC; 83690-TC; 83735-TC; 84100-TC; 84155; 84165; 84443-TC; 84478-TC; 84703-TC; 85025-TC; 85027-TC; 85378-TC; 85385-TC; 85396; 85610-TC; 85730-TC; 86225; 86235; 86334; 86431-TC; 86706; 86803; 86850-TC; 87040-TC; 87081-TC; 87340; 92526; 92611-TC; 94002-TC; 94003-TC; 94799-TC; 97110-TC; 97112-TC; 97530-TC; A4217; A4223; A9563; C9113; G0378; J0330; J0692; J1200; J2060; J2185; J2354; J2405; J2704; J2765; J3370; J3371; J3411; J3430; J3475; J3480; J3490; J7030; J7040; J7042; J7050; J7060; P9012; P9016; P9017; P9034